=== PATIENT | female | born 1950 | race Caucasian/White ===

== ENCOUNTER 2020-05-21 16:29 | Emergency (ER) | payer MEDICARE, OTHER ==
[~2020-05-21] VITALS: Ht 165.1 cm; Wt 104.5 kg
[2020-05-21] MEDS ORDERED: IV NORMAL SALINE 1000ML BAG 1,000 ML IV ONE ×2 (17:30→21:00)
[2020-05-21] MEDS ORDERED: NALOXONE 2 MG/2 ML DISP.SYRIN. IV ONE (17:30)
[2020-05-21 18:03] LABS: BASO # 0.1 x10^3/uL (0.0-0.2); BASO % 0 % (0-3); EOS % 0 % (0-3); HEMOGLOBIN 14.1 g/dL (12.0-15.5); LYMPH # 1.5 x10^3/uL (1.0-4.8); LYMPH % 10 % (24-48); MEAN CORPUSCULAR HEMOGLOBIN 30 pg (25-35); MEAN CORPUSCULAR HGB CONC 34 g/dL (31-37); MEAN CORPUSCULAR VOLUME 90 fL (79-100); MONO # 1.1 x10^3/uL (0.0-1.1); MONO % 7 % (0-9); NEUT % 83 % (31-73); PLATELET COUNT 214 x10^3/uL (140-400); RED BLOOD COUNT 4.64 x10^6/uL (3.50-5.40); RED CELL DISTRIBUTION WIDTH 14.1 % (11.5-14.5); WHITE BLOOD COUNT 15.8 x10^3/uL (4.0-11.0)
[2020-05-21 18:13] LABS: CALCIUM 9.4 mg/dL (8.5-10.1); GFR 54.8; POTASSIUM 3.4 mmol/L (3.5-5.1)
[2020-05-21 18:18] LABS: ACETAMIN < 2 mcg/ml (10-30)
[2020-05-21 18:21] LABS: % BANDS 7 % (0-9); % LYMPHS 11 % (24-48); % MONOS 10 % (0-10); % SEGS 72 % (35-66); PLT ESTIMATE ADEQUATE (ADEQUATE)
[2020-05-21 18:23] LABS: ALBUMIN 3.8 g/dL (3.4-5.0); ALBUMIN/GLOBULIN RATIO 0.8 (1.0-1.7); TOTAL BILIRUBIN 0.6 mg/dL (0.2-1.0); TOTAL PROTEIN 8.5 g/dL (6.4-8.2)
[2020-05-21] MEDS ORDERED: CONTRAST GIVEN. MC PRN (18:30)
[2020-05-21] MEDS ORDERED: IOHEXOL 300 MG/ML 100ML VIAL. IV ONE (18:30)
--- NOTE | 2020-05-21 18:42 | PHYS DOC ---
Past Medical History Past Medical History: High Cholesterol, Hypertension Past Surgical History: No Surgical History Smoking Status: Never Smoker Alcohol Use: None General Adult EDM: Chief Complaint: CONSTIPATION HPI: HPI: Patient is a 69 year old female presents with the chief complaint of left upper and lower quadrant and left flank pain. Onset x 2 days progressively getting worse. Associated symptoms include nausea. Review of Systems: Review of Systems: Constitutional: Denies fever or chills. [] Eyes: Denies change in visual acuity. [] HENT: Denies nasal congestion or sore throat. [] Respiratory: Denies cough or shortness of breath. [] Cardiovascular: Denies chest pain or edema. [] GI: Positive abdominal pain, Positive nausea, Positive vomiting, no bloody stools or diarrhea. [] : Denies dysuria. [] Musculoskeletal: Denies back pain or joint pain. [] Integument: Denies rash. [] Neurologic: Denies headache, focal weakness or sensory changes. [] Endocrine: Denies polyuria or polydipsia. [] Lymphatic: Denies swollen glands. [] Psychiatric: Denies depression or anxiety. [] Heart Score: C/O Chest Pain: No Risk Factors: Risk Factors: DM, Current or recent (<one month) smoker, HTN, HLP, family history of CAD, obesity. Risk Scores: Score 0 - 3: 2.5% MACE over next 6 weeks - Discharge Home Score 4 - 6: 20.3% MACE over next 6 weeks - Admit for Clinical Observation Score 7 - 10: 72.7% MACE over next 6 weeks - Early Invasive Strategies Current Medications: Current Medications Medications (Trade) Dose Ordered Sig/Gama Start Time Stop Time Status Last Admin Dose Admin Info (CONTRAST GIVEN -- Rx MONITORING) 1 each PRN DAILY PRN 05/21/20 18:30 05/23/20 18:29 Iohexol (Omnipaque 300 Mg/ml) 60 ml 1X ONCE 05/21/20 18:30 05/21/20 18:31 DC 05/21/20 18:25 60 ML Naloxone HCl (NARCAN 2mg SYRINGE) 2 mg 1X ONCE 05/21/20 17:30 05/21/20 17:38 DC Sodium Chloride 1,000 ml @ 1,000 mls/hr 1X ONCE 05/21/20 17:30 05/21/20 17:38 DC Allergies: Allergies: Allergies Coded Allergies Type Severity Reaction Last Updated Verified Sulfa (Sulfonamide Antibiotics) Allergy Severe Anaphylaxis 05/21/20 Yes Physical Exam: PE: General: alert, no acute distress. Skin: warm, dry and intact. Head:: Normocephalic, atraumatic. Neck: Trachea midline. Eyes: EOMI, Normal conjunctiva, No drainage CARDIOVASCULAR: Regular rate and rhythm RESPIRATORY: No respiratory distress Back: Full range of motion. MUSCULOSKELETAL: Full range of motion of bilateral upper and lower extremities. GASTROINTESTINAL: Abdomen soft without rebound or guarding. NEUROLOGICAL: Alert and noted to person, place and time. No neurological deficits observed Psychiatric: Cooperative. Normal judgment Current Patient Data: Labs: Laboratory Tests Test 05/21/20 17:51 White Blood Count 15.8 x10^3/uL (4.0-11.0) H Red Blood Count 4.64 x10^6/uL (3.50-5.40) Hemoglobin 14.1 g/dL (12.0-15.5) Hematocrit 42.0 % (36.0-47.0) Mean Corpuscular Volume 90 fL (79-100) Mean Corpuscular Hemoglobin 30 pg (25-35) Mean Corpuscular Hemoglobin Concent 34 g/dL (31-37) Red Cell Distribution Width 14.1 % (11.5-14.5) Platelet Count 214 x10^3/uL (140-400) Neutrophils (%) (Auto) 83 % (31-73) H Lymphocytes (%) (Auto) 10 % (24-48) L Monocytes (%) (Auto) 7 % (0-9) Eosinophils (%) (Auto) 0 % (0-3) Basophils (%) (Auto) 0 % (0-3) Neutrophils # (Auto) 13.0 x10^3/uL (1.8-7.7) H Lymphocytes # (Auto) 1.5 x10^3/uL (1.0-4.8) Monocytes # (Auto) 1.1 x10^3/uL (0.0-1.1) Eosinophils # (Auto) 0.0 x10^3/uL (0.0-0.7) Basophils # (Auto) 0.1 x10^3/uL (0.0-0.2) Segmented Neutrophils % 72 % (35-66) H Band Neutrophils % 7 % (0-9) Lymphocytes % 11 % (24-48) L Monocytes % 10 % (0-10) Platelet Estimate Adequate (ADEQUATE) Sodium Level 136 mmol/L (136-145) Potassium Level 3.4 mmol/L (3.5-5.1) L Chloride Level 96 mmol/L (98-107) L Carbon Dioxide Level 27 mmol/L (21-32) Anion Gap 13 (6-14) Blood Urea Nitrogen 21 mg/dL (7-20) H Creatinine 1.0 mg/dL (0.6-1.0) Estimated GFR (Cockcroft-Gault) 54.8 BUN/Creatinine Ratio 21 (6-20) H Glucose Level 142 mg/dL (70-99) H Calcium Level 9.4 mg/dL (8.5-10.1) Total Bilirubin 0.6 mg/dL (0.2-1.0) Aspartate Amino Transferase (AST) 19 U/L (15-37) Alanine Aminotransferase (ALT) 24 U/L (14-59) Alkaline Phosphatase 48 U/L (46-116) Total Protein 8.5 g/dL (6.4-8.2) H Albumin 3.8 g/dL (3.4-5.0) Albumin/Globulin Ratio 0.8 (1.0-1.7) L Acetaminophen Level < 2 mcg/ml (10-30) L Acetaminophen Last Dose Date Unk Acetaminophen Last Dose Time Unk Laboratory Tests 05/21/20 17:51 Laboratory Tests 05/21/20 17:51 Vital Signs: Vital Signs Date Time Temp Pulse Resp B/P (MAP) Pulse Ox O2 Delivery O2 Flow Rate FiO2 05/21/20 17:05 98.6 97 19 206/86 (126) 96 98.6 EKG: EKG: [] Radiology/Procedures: Radiology/Procedures: [] Impression: FINDINGS: Heart size is normal. No pericardial effusion. Strandy opacities at dependent portion lungs likely representing atelectasis. No pleural effusion. Liver, spleen, pancreas, gallbladder and adrenals are unremarkable. No perinephric inflammation or hydronephrosis. Several cystic lesions are noted within the right kidney which are incompletely characterized secondary to small size. No renal or ureteral calculi are identified. Bladder is partially distended and appears thin-walled. Uterus is not enlarged. No abnormal adnexal mass. Fat stranding surrounding the rectum. Diverticulosis noted in the sigmoid colon without evidence of acute diverticulitis. Remainder of the large and small bowel are unremarkable. Appendix is nonidentified. No free intra-abdominal air or fluid. No obstruction. Abdominal aorta has a normal course and caliber. No enlarged intra-abdominal lymph nodes are identified. No suspicious osseous lesions or acute fractures. IMPRESSION: 1. Mild fat stranding surrounding the rectum, may relate to colitis. 2. Diverticulosis without evidence of acute diverticulitis. Course & Med Decision Making: Course & Med Decision Making Pertinent Labs and Imaging studies reviewed. (See chart for details) [] Patient was evaluated for chief complaint. Work-up consisted of laboratory analysis and radiologic imaging. Results reviewed and discussed with patient. Patient states she has had difficulty urinating and a Aguilar was placed patient had approximately [address] imaging performed shows a colitis rectum. Patient did have an elevated white blood cell count. Patient's pain was treated with morphine with resolution. Patient received Zofran for her nausea. Patient received a liter of IV fluids per Initially ordered a soapsuds enema--- seen with patient this procedure was deferred. Patient will be discharged home on Cipro and Flagyl. Patient will also receive a prescription of GoLYTELY. Sherine Disclaimer: Sherine Disclaimer: This electronic medical record was generated, in whole or in part, using a voice recognition dictation system. Departure Departure Impression: Primary Impression: Constipation Additional Impressions: Colitis Urinary retention Disposition: 01 NM HOME SELF CARE/HOMELESS Condition: STABLE Referrals: MAGGI HAWTHORNE MD (PCP) Patient Instructions: Colitis, Constipation, Adult, Urinary Retention, Acute, Female Scripts Peg 3350/Na Sulf,Bicarb,Cl/Kcl (GOLYTELY SOLUTION) 4,000 Ml Soln.recon 4000 ML PO 1X for 1 Day, MISC Drink 8 oz q 10 minutes until stool Prov: MAGGI HOGAN I DO 05/21/20 Metronidazole (FLAGYL) 500 Mg Tablet 1 TAB PO BID, #14 TAB Prov: MAGGI HOGAN I DO 05/21/20 Ciprofloxacin Hcl (CIPRO) 500 Mg Tablet 1 TAB PO BID for 7 Days, #14 TAB 0 Refills Prov: MAGGI HOGAN I DO 05/21/20 MAGGI HOGAN I DO May 21, 2020 18:42
--- NOTE | 2020-05-21 18:42 | RAD ---
INDICATION: Reason: ams / Spl. Instructions: / History: COMPARISON: March 2014 FINDINGS: Single view of chest obtained. Hypoexpanded exam. Elevation of the right hemidiaphragm is again seen. Mild linear opacities at the lower lungs. Cardiac silhouette is prominent in size. Degenerative changes of the shoulders. IMPRESSION: * Elevation of the right hemidiaphragm with mild linear opacities at the lung bases which is commonl y from atelectasis. Electronically signed by: Brayden Valenzuela MD (05/21/2020 6:40 PM) [id number]
--- NOTE | 2020-05-21 18:50 | RAD ---
Exam: CT of abdomen and pelvis with contrast INDICATION: Constipation TECHNIQUE: Sequential axial images through the abdomen and pelvis obtained following the administrati on of 60 mL of Omni 300 IV contrast. Sagittal and coronal reformatted images were reconstructed from the axial data and reviewed. Comparisons: None FINDINGS: Heart size is normal. No pericardial effusion. Strandy opacities at dependent portion lungs likely re presenting atelectasis. No pleural effusion. Liver, spleen, pancreas, gallbladder and adrenals are unremarkable. No perinephric inflammation or hydronephrosis. Several cystic lesions are noted within the right kidn ey which are incompletely characterized secondary to small size. No renal or ureteral calculi are sue ntified. Bladder is partially distended and appears thin-walled. Uterus is not enlarged. No abnormal adnexal m ass. Fat stranding surrounding the rectum. Diverticulosis noted in the sigmoid colon without evidence of a cute diverticulitis. Remainder of the large and small bowel are unremarkable. Appendix is nonidentifi ed. No free intra-abdominal air or fluid. No obstruction. Abdominal aorta has a normal course and caliber. No enlarged intra-abdominal lymph nodes are identified. No suspicious osseous lesions or acute fractures. IMPRESSION: 1. Mild fat stranding surrounding the rectum, may relate to colitis. 2. Diverticulosis without evidence of acute diverticulitis. Exposure: One or more of the following in the visualized dose reduction techniques were utilized for this examination: 1. Automated exposure control 2. Adjustment of the MA and/or KV according to patient size 3. Use of iterative of reconstructive technique Electronically signed by: Porfirio Monet MD (05/21/2020 6:48 PM) [facility] [place]
[2020-05-21] MEDS ORDERED: ONDANSETRON PF 4 MG/2 ML VIAL. IVP ONE ×2 (19:00→21:30)
[2020-05-21] MEDS ORDERED: MORPHINE SULFATE 2 MG/ML VIAL. IV ONE (19:00)
[2020-05-21 20:57] LABS: BILIRUBIN,URINE NEGATIVE (NEG); CLARITY,URINE CLEAR; COLOR,URINE YELLOW; NITRITE,URINE NEGATIVE (NEG); PH,URINE 5.5 (<5.0-8.0); PROTEIN,URINE NEGATIVE (NEG-TRACE); UROBILINOGEN,URINE 0.2 mg/dL (0.2 mg/dL)
[2020-05-21] MEDS ORDERED: MORPHINE SULFATE 4 MG/ML VIAL. IV ONE (21:00)
[2020-05-21 21:04] LABS: BACTERIA,URINE FEW /HPF (0-FEW)
[2020-05-21 21:06] LABS: RBC,URINE RARE /HPF (0-2); WBC,URINE 0 /HPF (0-4)
[2020-05-21 21:35] VITALS: BP 170/74
[2020-05-21] MEDS ORDERED: METR500T PO (22:57)
[2020-05-21] MEDS ORDERED: PEG4000S8 PO (22:57)
[2020-05-21] MEDS ORDERED: CIPR500T94 PO (22:57)
== END 2020-05-21 23:40 | disposition home or self-care (01) ==
LOC: ER 16:29
DX: K52.9 Noninfective gastroenteritis and colitis, unspecified (principal); K59.00 Constipation, unspecified; R33.9 Retention of urine, unspecified; K57.90 Diverticulosis of intestine, part unspecified, without perforation or abscess without bleeding; E78.00 Pure hypercholesterolemia, unspecified; I10 Essential (primary) hypertension; Z88.2 Allergy status to sulfonamides
CPT/HCPCS: 36415; 51702; 71045; 74177; 80053; 80329; 81001; 85007; 85025; 96361; 96374; 96375; 96376; 99285; A4314; J2270; J2405; J7030; Q9967; G0480